=== PATIENT | male | born 1975 | race Caucasian/White ===

== ENCOUNTER 2017-10-17 11:37 | Emergency (ER) | payer OTHER, MEDICAID ==
--- NOTE | 2017-10-17 12:52 | EDPHY ---
H & P Stated Complaint: Recheck inner thigh abcess- had I&D on abx Time Seen by Provider: 10/17/17 12:45 HPI/ROS: HPI: This is a 42-year-old male who presents with Chief Complaint: Recheck inner thigh abcess- had I&D on abx Location: Left inner thigh/groin Quality: Abscess Duration: Several days Signs and Symptoms: No bleeding, no radiation, no numbness, no weakness, no tingling, no incontinence, no decreased range of motion, no swelling, no pain, no fever Timing: Improving Severity: Mild Context: Patient has a history of HIV and anal cancer squamous cell carcinoma presents for wound check of left inner thigh crying abscess. Patient reports that he has been taking Bactrim and Keflex as directed. He reports improvement in the swelling, redness, warmth. He denies any pain. He is able to urinate and defecate without any difficulties. No fever. Modifying Factors: Antibiotics Comment: ROS: see HPI Constitutional: No fever, no chills, no weight loss Eyes: No blurred vision Respiratory: No shortness of breath, no cough Cardiovascular: No chest pain Gastrointestinal: No nausea, no vomiting no diarrhea Genitourinary: No dysuria Extremities: No myalgias Neurologic: No weakness, no numbness Skin: No rashes Hematologic: No bruising, no bleeding MEDICAL/SURGICAL/SOCIAL HISTORY: Medical history: hiv/anal cancer squamous cell carcinoma Surgical history: Denies Social history: Originally from [place]. Just moved to the area. CONSTITUTIONAL: Polite and talkative, middle-aged white male, awake and alert, no obvious distress HEENT: Atraumatic and normocephalic, PERRL, EOMI. Nares patent; no rhinorrhea; no nasal mucosal edema. Tympanic membranes clear. Oropharynx clear, no exudate and moist pink mucosa. Airway patent. No lymphadenopathy. No meningismus. Cardiovascular: Normal S1/S2, regular rate, regular rhythm, without murmur rub or gallop. PULMONARY/CHEST: Symmetrical and nontender. Clear to auscultation bilaterally. Good air movement. No accessory muscle usage. ABDOMEN: Soft, nondistended, nontender, no rebound, no guarding, no peritoneal signs, no masses or organomegaly. No CVAT. Male : circumcised penis, bilateral descended testes, no testicular swelling, no testicular masses, no penile discharge, no lesions, negative Prehn's sign. Left inguinal canal shows mild erythema but no induration with opening consistent with incision and drainage site. Packing no longer and placed. No discharge. No tenderness with palpation. EXTREMITIES: 2/2 pulses, strength 5/5, no deformities, no clubbing, no cyanosis or edema. NEUROLOGICAL: no focal neuro deficits. GCS 15. SKIN: Warm and dry, no erythema. no rash. Good capillary refill. Source: Patient Exam Limitations: No limitations - Medical/Surgical History Hx Asthma: No Hx Chronic Respiratory Disease: No Hx Diabetes: No Hx Cardiac Disease: No Hx Renal Disease: No Hx Cirrhosis: No Hx Alcoholism: No Hx HIV/AIDS: Yes Hx Splenectomy or Spleen Trauma: No Other PMH: hiv/anal cancer squamous cell carcinoma - Social History Smoking Status: Current every day smoker Constitutional: Initial Vital Signs Temperature (C) 36.5 C 10/17/17 11:50 Heart Rate 80 10/17/17 11:50 Respiratory Rate 16 10/17/17 11:50 Blood Pressure 133/94 H 10/17/17 11:50 O2 Sat (%) 95 10/17/17 11:50 O2 Delivery Mode Room Air Allergies/Adverse Reactions: moxifloxacin [From Avelox] Allergy (Verified 10/15/17 09:41) Home Medications: Medication Instructions Recorded Atripla Tablet 10/15/17 Bactrim DS 10/15/17 Cephalexin [Keflex (*)] 500 mg PO QID #40 cap 10/15/17 Sulfamethox/Tmp 800/160 mg 2 tab PO BID 10 Days tab 10/15/17 [Bactrim Ds] oxyCODONE HCL/ACETAMINOPHEN 1 each PO Q4-6PRN PRN #7 tablet 10/15/17 [Percocet 5-325 mg Tablet] Medical Decision Making ED Course/Re-evaluation: Vital signs reviewed and stable upon arrival. No systemic signs. Abscess is healing nicely. Advised to continue antibiotics. Case management consult who confirmed PCP appointment and Infectious Disease appointment tomorrow. This patient was seen under the supervision of my secondary supervising physician. I evaluated care for this patient independently. Discussed this patient with Dr. Garcia. Differential Diagnosis: Differential diagnosis includes but is not limited to cellulitis, abscess, Krystina gangrene. Departure - Departure Disposition: Home, Routine, Self-Care Clinical Impression: Abscess of left groin Condition: Good Instructions: Abscess (ED) Additional Instructions: Continue to take Bactrim and Keflex for the full 10 day course. Keep follow-up appointment with infectious disease tomorrow with Dr. Reese at 2: 15 p.m. Keep follow-up appointment with primary care provider. Return to the ER immediately if you experience redness, red streaks, have fevers /chills, flu like symptoms, limited range of motion, or any other symptoms that concern you. Referrals: Tyrone Reese MD [Medical Doctor] - 10/18/17 2:15 am
[2017-10-17 12:57] VITALS: BP 135/70
--- NOTE | 2017-10-17 17:06 | ASMTCMCOM ---
CM Note CM Note Notes: Pt presented to the ED for a wound check. Pt was seen 10/15/17 for an abscess and recommended to return to the ED within 48hrs for a re-check. Spoke w/pt and he states he had called the [facility] to schedule a follow-up appt but had to leave a message and hadn't heard back. This CM called the [facility] and spoke w/STACIE Hernandez, and she was able to get pt an appt tomorrow 10/18/17 at 2:15pm w/Dr Reese. Pt agreeable to this plan and appreciative. On 10/15, pt had been incorrectly referred to the neurologist Dr Kirt Mann when he probably was meant to be referred to the on-call primary care physician at that time, Dr. Howard Mann at [facility] ([phone]). Pt provided Dr. Howard Mann information and recommended to call to schedule an appt. Pt agreeable and appreciative. Pt states he also is planning on going to [facility] office in [place] this afternoon. CM available for further assistance if needed. Date Signed: 10/17/2017 05:05 PM Electronically Signed By:Jenna Romero RN
== END 2017-10-17 12:56 | disposition home or self-care (01) ==
DX: L02.416 Cutaneous abscess of left lower limb (principal); F17.200 Nicotine dependence, unspecified, uncomplicated; Z21 Asymptomatic human immunodeficiency virus [HIV] infection status; Z85.048 Personal history of other malignant neoplasm of rectum, rectosigmoid junction, and anus
CPT/HCPCS: 86359-90; 86360-90; 86704-90; 87536-90